=== PATIENT | female | born 1985 | race Caucasian/White ===

== ENCOUNTER 2021-02-22 12:29 | Outpatient (CLI) | payer BC, SELFPAY ==
--- NOTE | 2021-02-22 12:38 | XR_ITS ---
WS: [id number] Chest 2 views, 02/22/2021 Clinical Data: ATYPICAL CHEST PAIN Comparison: PA and lateral chest, 10/18/2015. Findings: No nodules, masses or effusions are seen. The heart is normal. The pulmonary vascularity is not increased. No pneumonia or pneumothorax is seen. XR/XR chest 2V* [id number] Impression: Negative chest.
--- NOTE | 2021-02-22 12:39 | XR_ITS ---
WS: [id number] Left shoulder, 2 views, 02/22/2021 Clinical Data: SCAPULALGIA, LEFT Comparison: None. Findings: No fractures or dislocations are seen. The AC joint is normal. The adjacent left clavicle, left scapu la and ribs are normal. The soft tissues are unremarkable. XR/XR shoulder LT min 2V* [id number] Impression: Negative left shoulder.
== END 2021-02-22 12:30 | disposition home or self-care (01) ==
LOC: RAD 12:34
PROVIDERS: Visit Provider Nurse Practitioner Family
DX: R07.89 Other chest pain (principal); M89.8X1 Other specified disorders of bone, shoulder
CPT/HCPCS: 71046; 73030

== ENCOUNTER → 2022-03-15 11:04 | Outpatient (BNVA) | payer BC, MEDICAID, SELFPAY | PROVIDERS: Visit Provider Family Medicine Adult Medicine | DX: N89.8 Other specified noninflammatory disorders of vagina (principal) | CPT/HCPCS: 81000 ==

== ENCOUNTER → 2023-08-29 11:03 | Outpatient (BNVA) | payer OTHER, MEDICAID, SELFPAY | PROVIDERS: Visit Provider Nurse Practitioner Women's Health | DX: N92.6 Irregular menstruation, unspecified (principal) | CPT/HCPCS: 82306; 82607; 82728; 82746; 83550; 85025 ==

== ENCOUNTER → 2023-09-18 08:50 | Outpatient (BNVA) | payer OTHER, MEDICAID, SELFPAY | PROVIDERS: Visit Provider Nurse Practitioner Women's Health | DX: N94.6 Dysmenorrhea, unspecified (principal); R93.89 Abnormal findings on diagnostic imaging of other specified body structures | CPT/HCPCS: 76830 ==

== ENCOUNTER → 2023-09-25 09:03 | Outpatient (BNVA) | payer OTHER, MEDICAID, SELFPAY | PROVIDERS: Visit Provider Nurse Practitioner Women's Health | DX: N92.0 Excessive and frequent menstruation with regular cycle (principal); N94.6 Dysmenorrhea, unspecified; N80.03 Adenomyosis of the uterus | CPT/HCPCS: 84439; 84443; 84481 ==

== ENCOUNTER → 2023-11-07 11:39 | Outpatient (BNVA) | payer OTHER, MEDICAID, SELFPAY | PROVIDERS: Visit Provider Nurse Practitioner Women's Health | DX: N92.0 Excessive and frequent menstruation with regular cycle | CPT/HCPCS: 82607; 82728; 82746; 83550 ==

== ENCOUNTER → 2024-02-26 08:51 | Outpatient (BNVA) | payer OTHER, MEDICAID, SELFPAY | PROVIDERS: Referring Provider Nurse Practitioner Women's Health; Visit Provider Psychiatry & Neurology Neurology | DX: E55.9 Vitamin D deficiency, unspecified (principal); Z82.0 Family history of epilepsy and other diseases of the nervous system; N80.03 Adenomyosis of the uterus; N94.6 Dysmenorrhea, unspecified; N92.0 Excessive and frequent menstruation with regular cycle; R53.82 Chronic fatigue, unspecified; R06.83 Snoring; G47.00 Insomnia, unspecified; G47.19 Other hypersomnia; F51.3 Sleepwalking [somnambulism]; R53.83 Other fatigue; R55 Syncope and collapse | CPT/HCPCS: 36415; 80053; 82306; 82607; 82746; 83090; 83519; 83735; 83921 ==

== ENCOUNTER 2024-06-02 08:10 | Outpatient (CLI) | payer OTHER, MEDICAID, SELFPAY | END 2024-06-02 08:11 | disposition home or self-care (01) | LOC: SLEEP 08:12 | PROVIDERS: Visit Provider Physician Assistant Medical | DX: G47.33 Obstructive sleep apnea (adult) (pediatric) (principal) | CPT/HCPCS: G0399 ==

== ENCOUNTER → 2025-05-15 17:25 | Outpatient (BNVA) | payer OTHER, MEDICAID, SELFPAY | PROVIDERS: Visit Provider Emergency Medicine | DX: R39.9 Unspecified symptoms and signs involving the genitourinary system (principal); R30.0 Dysuria | CPT/HCPCS: 81000; 81513; 87086; 87481; 87491; 87591; 87661 ==

== ENCOUNTER → 2025-08-10 12:47 | Outpatient (BNVA) | payer OTHER, MEDICAID, SELFPAY | PROVIDERS: Visit Provider Nurse Practitioner Women's Health | DX: R32 Unspecified urinary incontinence (principal); N89.8 Other specified noninflammatory disorders of vagina; R30.0 Dysuria | CPT/HCPCS: 84315; 87086 ==